=== PATIENT | female | born 1990 | race American Indian/Alaskan Native ===

== ENCOUNTER 2019-06-08 16:59 | Emergency (ER) | payer SELFPAY ==
--- NOTE | 2019-06-08 18:42 | Event Note ---
ED Screening Note Date of service: 06/08/19 Time: 18:40 ED Screening Note: This is a 29 y.o. F. that presents to the ER with abscess to left upper buttock and x 3 days. This initial assessment/diagnostic orders/clinical plan/treatment(s) is/are subject to change based on patients health status, clinical progression and re- assessment by fellow clinical providers in the ED. Further treatment and workup at subsequent clinical providers discretion. Patient/guardian urged not to elope from the ED as their condition may be serious if not clinically assessed and managed. Initial orders include:
[2019-06-08] MEDS ORDERED: IBUPROFEN ORAL LIQD 100 MG/5 ML ORAL.LIQD PO ONE (19:45)
[2019-06-08] MEDS ORDERED: LIDOCAINE-MPF (1%) 10 MG/1 ML VIAL 5 ML INFILTRATI ONE (19:46)
--- NOTE | 2019-06-08 19:48 | Emergency Department Report ---
Abscess Boil HPI - HPI Chief Complaint: Skin/Abscess/Foreign Body Stated Complaint: PAINFUL BUMP/AND SWELLING Time Seen by Provider: 06/08/19 18:39 Duration: 3 Days Location: Sacral/Pilonidal Severity: Severe History: Yes Pain, Yes Previous History, No Fever, No Purulent Drainage, No Numbness, No Foreign Body, No Insect Bite HPI: 29-year-old -[place] female presents to the emergency room for a 3 day history of a lump and swelling to her right buttocks cleft. Patient reports she's had a history of these in the past. Patient reported about 6 months ago she had one and they placed her or not Augmentin but gave her pills that she cannot swallow pills. Patient states she already was able to get 1 dose down. Patient reports his abscess today has no drainage and she denies any fever or chills nausea no vomiting. Home Medications: Previous Rx's Medication Instructions Recorded Last Taken Type Amoxicillin/K Clav Oral Liqd 10 ml PO Q8H 10 Days #1 bottle 06/08/19 Unknown Rx [Augmentin 250-62.5 mg/5 ml] Ibuprofen Oral Liqd [Motrin Oral 600 mg PO TID PRN #2 bottle 06/08/19 Unknown Rx Liq 100 mg/5 ml] Allergies/Adverse Reactions: Allergies Allergy/AdvReac Type Severity Reaction Status Date / Time No Known Allergies Allergy Verified 06/08/19 18:42 ED Review of Systems ROS: Stated complaint: PAINFUL BUMP/AND SWELLING Other details as noted in HPI Comment: All other systems reviewed and negative ED Past Medical Hx - Surgical History Additional Surgical History: BREAST REDUCTION AT 11 - Social History Smoking Status: Current Every Day Smoker Substance Use Type: Marijuana - Medications Home Medications: Home Medications Medication Instructions Recorded Confirmed Last Taken Type Amoxicillin/K Clav Oral Liqd 10 ml PO Q8H 10 Days #1 bottle 06/08/19 Unknown Rx [Augmentin 250-62.5 mg/5 ml] Ibuprofen Oral Liqd [Motrin Oral 600 mg PO TID PRN #2 bottle 06/08/19 Unknown Rx Liq 100 mg/5 ml] ED Abscess Boil Physical Exam - Exam General: Vital signs noted. No distress. Alert and acting appropriately. Size: 3 cm Exam: Yes Tenderness, Yes Fluctuance, Yes Surrounding Cellulites/Erythema, Yes Normal Neurologic Exam, Yes Normal Circulation, No Lymphangitis, No Crepitation, No Heart Murmur I & D Note - I & D Note I & D Note: DATE OF PROCEDURE: 06/08/19. PREOPERATIVE DIAGNOSES: 1.soft tissue infection. . POSTOPERATIVE DIAGNOSES: 1.soft tissue infection. Infection appeared to be contained to subcutaneous tissue and there was no evidence of necrotizing soft tissue infection including myonecrosis. OPERATION PERFORMED: Incision and drainage of ..... soft tissue abscess. Provider: Ed Mireles PA-C. ANESTHESIA: Local. DESCRIPTION OF PROCEDURE: The patient was prepped and draped. Seropurulent, somewhat bloody fluid was noted. The infection appeared contained to a golf ball-sized area in the subcutaneous tissues above the fascia. There was no evidence of myonecrosis, penetration of the fascia or significant extent along the fascia of the infection. We cleaned the area with Betadine and then packed the wound .......... Dry dressings were applied. The patient appeared to tolerate the procedure well. ED Course Vital Signs 06/08/19 18:39 Temperature 98.4 F Pulse Rate 100 H Respiratory 18 Rate Blood Pressure 112/75 [Right] O2 Sat by Pulse 99 Oximetry Critical care attestation.: If time is entered above; I have spent that time in minutes in the direct care of this critically ill patient, excluding procedure time. ED Medical Decision Making - Medical Decision Making 29-year-old -[place] female presents to the emergency room for a 3 day history of a lump and swelling to her right buttocks cleft. Patient reports she's had a history of these in the past. Patient reported about 6 months ago she had one and they placed her or not Augmentin but gave her pills that she cannot swallow pills. Patient states she already was able to get 1 dose down. Patient reports his abscess today has no drainage and she denies any fever or chills nausea no vomiting. Patient was given ibuprofen 600 mg for pain management. Patient will be placed on Augmentin liquid by mouth in ibuprofen liquid for pain management. Patient is to follow-up with a primary care provider if her sy mptoms persist or gets worse. ED Disposition Clinical Impression: Abscess of buttock, left Disposition: DC-01 TO HOME OR SELFCARE Is pt being admited?: No Does the pt Need Aspirin: No Condition: Stable Instructions: Abscess (ED) Prescriptions: Amoxicillin/K Clav Oral Liqd [Augmentin 250-62.5 mg/5 ml] 10 ml PO Q8H 10 Days #1 bottle Ibuprofen Oral Liqd [Motrin Oral Liq 100 mg/5 ml] 600 mg PO TID PRN #2 bottle PRN Reason: Pain , Severe (7-10) Referrals: PRIMARY CARE, [Primary Care Provider] - 3-5 Days [facility] [Provider Group] - 3-5 Days Forms: Work/School Release Form(ED)
[2019-06-08 22:03] VITALS: BP 114/78
== END 2019-06-08 21:00 | disposition home or self-care (01) ==
LOC: ED 16:59
DX: L02.31 Cutaneous abscess of buttock (principal); F17.200 Nicotine dependence, unspecified, uncomplicated; F12.10 Cannabis abuse, uncomplicated
CPT/HCPCS: 99282

== ENCOUNTER 2019-06-14 02:59 | Emergency (ER) | payer SELFPAY ==
[2019-06-14 03:03] VITALS: BP 120/75
[2019-06-14] MEDS ORDERED: TETANUS,DIPH,PERTUSS(ACELL) VACCINE 0.5 ML SYRINGE IM ONE (03:32)
--- NOTE | 2019-06-14 03:32 | Emergency Department Report ---
- General Chief complaint: Skin/Abscess/Foreign Body Stated complaint: ABSCESS ON BUTTOCKS Time Seen by Provider: 06/14/19 03:27 Source: patient Mode of arrival: Ambulatory Limitations: No Limitations - History of Present Illness Initial comments: Jose is a 29-year-old female who has been recently treated for a left buttock abscess. Taking Augmentin antibiotics. She now has a new adjacent right buttock abscess that has come to the head. Abscess has been present for 5 days. Denies fever. Denies chills. Denies trauma. She does not shave the area. MD complaint: abscess/boil -: Gradual, days(s) (5) Tetanus Up to Date: no Severity: mild Consistency: constant Improves with: none Worsens with: palpation Context: recent antibiotic - Related Data Previous Rx's Medication Instructions Recorded Last Taken Type Amoxicillin/K Clav Oral Liqd 10 ml PO Q8H 10 Days #1 bottle 06/08/19 Unknown Rx [Augmentin 250-62.5 mg/5 ml] Ibuprofen Oral Liqd [Motrin Oral 600 mg PO TID PRN #2 bottle 06/08/19 Unknown Rx Liq 100 mg/5 ml] Allergies Allergy/AdvReac Type Severity Reaction Status Date / Time No Known Allergies Allergy Verified 06/08/19 18:42 Abscess Boil HPI - HPI Chief Complaint: Skin/Abscess/Foreign Body Stated Complaint: ABSCESS ON BUTTOCKS Time Seen by Provider: 06/14/19 03:27 Home Medications: Previous Rx's Medication Instructions Recorded Last Taken Type Amoxicillin/K Clav Oral Liqd 10 ml PO Q8H 10 Days #1 bottle 06/08/19 Unknown Rx [Augmentin 250-62.5 mg/5 ml] Ibuprofen Oral Liqd [Motrin Oral 600 mg PO TID PRN #2 bottle 06/08/19 Unknown Rx Liq 100 mg/5 ml] Allergies/Adverse Reactions: Allergies Allergy/AdvReac Type Severity Reaction Status Date / Time No Known Allergies Allergy Verified 06/08/19 18:42 ED Review of Systems ROS: Stated complaint: ABSCESS ON BUTTOCKS Other details as noted in HPI Constitutional: denies: fever, malaise Skin: rash, lesions ED Past Medical Hx - Past Medical History Previous Medical History?: No - Surgical History Past Surgical History?: Yes Additional Surgical History: BREAST REDUCTION AT 11 - Social History Smoking Status: Current Every Day Smoker Substance Use Type: None - Medications Home Medications: Home Medications Medication Instructions Recorded Confirmed Last Taken Type Amoxicillin/K Clav Oral Liqd 10 ml PO Q8H 10 Days #1 bottle 06/08/19 Unknown Rx [Augmentin 250-62.5 mg/5 ml] Ibuprofen Oral Liqd [Motrin Oral 600 mg PO TID PRN #2 bottle 06/08/19 Unknown Rx Liq 100 mg/5 ml] ED Physical Exam - General Limitations: No Limitations General appearance: alert, in no apparent distress - Head Head exam: Present: atraumatic, normocephalic - Respiratory Respiratory exam: Absent: respiratory distress - Rectal Rectal exam: Present: other (3 cm right buttock abscess just lateral to the superior gluteal cleft blister containing a puslike material) - Neurological Exam Neurological exam: Present: alert, oriented X3 - Psychiatric Psychiatric exam: Present: normal affect, normal mood ED Course Vital Signs 06/14/19 06/14/19 03:00 03:05 Temperature 98.2 F 98.2 F Pulse Rate 112 H 112 H Respiratory 16 16 Rate Blood Pressure 120/75 Blood Pressure 120/75 [Left] O2 Sat by Pulse 98 98 Oximetry - I & D Right Buttocks Type of Procedure: Simple Blade Size: 11 Progress: Simple stab incision released 2 mL of purulent pus material prior to incision area cleaned with alcohol swab. I applied a Band-Aid over the area ED Medical Decision Making - Medical Decision Making Right buttock abscess treated with stab incision. No indication for antibiotics due to small size without Surrounding cellulitis. She is currently taking A ugmentin. I encouraged her to continue course of antibiotic therapy. Also encouraged sitz baths. Tdap/tetanus booster provided in the emergency department. Critical care attestation.: If time is entered above; I have spent that time in minutes in the direct care of this critically ill patient, excluding procedure time. ED Disposition Clinical Impression: Abscess of right buttock Disposition: DC-01 TO HOME OR SELFCARE Is pt being admited?: No Does the pt Need Aspirin: No Condition: Stable Instructions: Abscess (ED) Forms: Work/School Release Form(ED)
== END 2019-06-14 03:47 | disposition home or self-care (01) ==
LOC: ED 02:59
DX: L02.31 Cutaneous abscess of buttock (principal); F17.200 Nicotine dependence, unspecified, uncomplicated; Z98.890 Other specified postprocedural states; Z79.899 Other long term (current) drug therapy
CPT/HCPCS: 90471; 90715; 99282

== ENCOUNTER 2022-02-26 03:20 | Emergency (ER) | payer SELFPAY ==
[2022-02-26] MEDS ORDERED: LIDOCAINE 2%/EPINEPHRINE 1:200,000 VIAL (20 ML) INFILTRATI NR (10:45)
--- NOTE | 2022-02-26 11:08 | Emergency Department Report ---
ED General Adult HPI - General Chief complaint: Skin/Abscess/Foreign Body Stated complaint: ANAL ABCESS Time Seen by Provider: 02/26/22 10:27 Source: patient Mode of arrival: Ambulatory Limitations: No Limitations - History of Present Illness Initial comments: 32-year-old -[place] female patient presents with complaints of pilonidal abscess x4 days. She states history of pilonidal abscesses. She denies any fever/chills/sweats. She rates her pain as a 9/10 in severity. Patient states she has been placing warm compresses on the area since her symptoms started. She has not followed up with a general surgeon. No known drug allergies per patient. Severity scale (0 -10): 9 - Related Data Previous Rx's Medication Instructions Recorded Last Taken Type Acetamin/Codeine 120-12Mg/5 ml 15 ml PO TID PRN #150 ml 02/26/22 Unknown Rx [Tylenol/Codeine] Cefdinir 300 mg PO BID 10 Days #200 ml 02/26/22 Unknown Rx Sulfamethoxazole/Trimethoprim 20 ml PO BID 10 Days #400 ml 02/26/22 Unknown Rx [Bactrim 200-40 mg/5 ml Oral Liq] Allergies Allergy/AdvReac Type Severity Reaction Status Date / Time No Known Allergies Allergy Verified 02/26/22 10:54 ED Review of Systems ROS: Stated complaint: ANAL ABCESS Other details as noted in HPI Constitutional: denies: chills, fever Gastrointestinal: denies: abdominal pain Musculoskeletal: denies: back pain, joint swelling, arthralgia Neurological: denies: numbness, paresthesias, abnormal gait ED Past Medical Hx - Past Medical History Previous Medical History?: Yes Additional medical history: recurring sacral abscess - Surgical History Additional Surgical History: BREAST REDUCTION AT 11 - Social History Smoking Status: Unknown if ever smoked Substance Use Type: None - Medications Home Medications: Home Medications Medication Instructions Recorded Confirmed Last Taken Type Acetamin/Codeine 120-12Mg/5 ml 15 ml PO TID PRN #150 ml 02/26/22 Unknown Rx [Tylenol/Codeine] Cefdinir 300 mg PO BID 10 Days #200 ml 02/26/22 Unknown Rx Sulfamethoxazole/Trimethoprim 20 ml PO BID 10 Days #400 ml 02/26/22 Unknown Rx [Bactrim 200-40 mg/5 ml Oral Liq] ED Physical Exam - General Limitations: No Limitations General appearance: alert, in no apparent distress - Head Head exam: Present: atraumatic, normocephalic - Respiratory Respiratory exam: Absent: respiratory distress - Cardiovascular Cardiovascular Exam: Present: regular rate - GI/Abdominal GI/Abdominal exam: Absent: tenderness - Rectal Rectal exam: Present: other (Pilonidal abscess noted to left upper gluteal cleft with surrounding erythema and significant tenderness to palpation; there is central fluctuance noted) - Neurological Exam Neurological exam: Present: alert, oriented X3, normal gait - Psychiatric Psychiatric exam: Present: normal affect, normal mood - Skin Skin exam: Present: warm, dry, intact, normal color. Absent: rash ED Course Vital Signs 02/26/22 02/26/22 03:23 10:50 Temperature 98.3 F 98.3 F Pulse Rate 93 H 93 H Respiratory 18 18 Rate Blood Pressure 130/82 130/82 O2 Sat by Pulse 100 100 Oximetry - I & D Buttocks Type of Procedure: Simple Site: Right gluteal cleft I & D Procedure: betadine prep, sterile drapes applied, sterile dressing applied, gauze wick placed Progress: 8 cc of lidocaine 2% with epi used anesthetize area. Minimal bleeding occurred. Patient tolerated procedure well without any immediate complications. Culture taken. Moderate purulent drainage obtained ED Medical Decision Making - Medical Decision Making 32-year-old -[place] female patient presents with complaints of pilonidal abscess x4 days. She states history of pilonidal abscesses. She denies any fever/chills/sweats. She rates her pain as a 9/10 in severity. Patient states she has been placing warm compresses on the area since her symptoms started. She has not followed up with a general surgeon. No known drug allergies per patient. Incision and drainage performed. Patient tolerated procedure well without any immediate complications. She is well-appearing and stable for discharge home. Wound care and signs and symptoms that should prompt immediate return to the ED discussed in detail with patient who verbalizes understanding Critical care attestation.: If time is entered above; I have spent that time in minutes in the direct care of this critically ill patient, excluding procedure time. ED Disposition Clinical Impression: Pilonidal abscess Disposition: HOME / SELF CARE / HOMELESS Is pt being admited?: No Condition: Stable Instructions: Pilonidal Cyst Drainage, Care After, Pilonidal Cyst Prescriptions: Sulfamethoxazole/Trimethoprim [Bactrim 200-40 mg/5 ml Oral Liq] 20 ml PO BID 10 Days #400 ml Cefdinir 300 mg PO BID 10 Days #200 ml Acetamin/Codeine 120-12Mg/5 ml [Tylenol/Codeine] 15 ml PO TID PRN #150 ml PRN Reason: severe pain Referrals: MEERA PIÑA MD [Staff Physician] - 3-5 Days
[2022-02-26] MEDS ORDERED: LIDOCAINE 2%/EPINEPHRINE 1:100,000 VIAL (20 ML) INFILTRATI ONE (11:25)
[2022-02-26 13:12] VITALS: BP 120/70
== END 2022-02-26 13:11 | disposition home or self-care (01) ==
LOC: ED 03:20
DX: L05.01 Pilonidal cyst with abscess (principal)
CPT/HCPCS: 10080; 87116; 99282; J3490